=== PATIENT | male | born 1945 | race Caucasian/White ===

== ENCOUNTER 2023-02-08 03:52 | Inpatient (IN) ==
[2023-02-08] MEDS ORDERED: Lidocaine PATCH 5% PATCH TRANSDERM ONE (04:26)
[2023-02-08] MEDS ORDERED: Triamcinolone Acetonide 40 mg VIAL 40 mg/ml 1 ml VIAL IM ONE (05:26)
[2023-02-08] MEDS ORDERED: Bupivacaine 0.25% SDV 30 ML INJ ONE (05:26)
[2023-02-08] MEDS ORDERED: Bupivacaine 0.25% SDV PF 10 ML VIAL INJ ONE (06:00)
[2023-02-08 06:48] LABS: INR 1.04 (0.83-1.13)
[2023-02-08 06:56] LABS: ABS Basophils 0.1 10^3/uL (0.0-0.1); ABS Eosinophils 0.1 10^3/uL (0.0-0.5); ABS Lymphocytes 1.4 10^3/uL (1.0-4.8); ABS Monocytes 0.7 10^3/uL (0.0-1.1); ABS Neutrophils 6.1 10^3/uL (1.5-7.6); Albumin 3.4 g/dL (3.2-5.2); Eosinophil % 1.2 %; Hematocrit 31.6 % (38-53); Hemoglobin 10.8 g/dL (13.2-16.3); Lymphocyte % 16.3 %; Mean Corpuscular Hemoglobin 29.1 pg (27-33); Mean Corpuscular Hgb Conc 34.3 g/dL (31-36); Mean Corpuscular Volume 84.7 fL (80-97); Platelet Count 400 10^3/uL (150-450); Potassium 4.4 mmol/L (3.5-5.0); Red Blood Count 3.73 10^6/uL (4.06-5.63); Red Cell Distribution Width 15.7 % (12-17); Total Bilirubin 0.3 mg/dL (0.2-1.0); White Blood Count 8.4 10^3/uL (3.6-10.2)
[2023-02-08 07:01] LABS: Albumin/Globulin Ratio 1.4 (1-3); Creatinine, Serum 0.56 mg/dL (0.67-1.17); Globulin 2.5 g/dL (2-4); Total Protein 5.9 g/dL (6.4-8.9); eGFR CKD-EPI 100.3 (>60)
[2023-02-08] MEDS ORDERED: Lactated Ringers 1000 ml BAG 1,000 ML IV ONE (07:23)
[2023-02-08] MEDS ORDERED: Iodixanol (CONTRAST) 320 MG/ML 100 ML SDV IV ONE (08:04)
[2023-02-08 08:11] LABS: High Sensitivity Troponin 1 Hr 7 pg/mL (<20)
[2023-02-08] MEDS: Ondansetron 4 mg VIAL 2 MG/ML 2 ml VIAL IV PRN (10:38)
[2023-02-08] MEDS: Enoxaparin 40 MG/0.4 ML SYR SUBCUT SCH (10:39)
[2023-02-08] MEDS ORDERED: Morphine ORAL CONCENTRATE 5 MG/0.25 ML ORAL.SYRIN SL PRN (11:17)
[2023-02-08] MEDS: Polyethylene Glycol 3350 17 GM PACKET PO SCH (12:03)
[2023-02-08 13:09] LABS: Osmolality Serum 273 mOsm/kg (275-295)
[2023-02-08 15:02] LABS: Urine Appearance Cloudy; Urine Bilirubin Negative (Negative); Urine Blood 1+ (Negative); Urine Color Yellow; Urine Glucose Negative (Negative); Urine Ketones Negative (Negative); Urine Nitrite Positive (Negative); Urine Protein Negative (Negative); Urine Urobilinogen Negative (Negative)
[2023-02-08 15:04] LABS: Urine Bacteria 1+ (Absent); Urine Red Blood Cell Trace(0-2/hpf) (Absent); Urine White Blood Cell 2+(11-20/hpf) (Absent)
[2023-02-08 15:31] LABS: Creatinine, Serum 0.53 mg/dL (0.67-1.17); Potassium 4.5 mmol/L (3.5-5.0); eGFR CKD-EPI 101.9 (>60)
[2023-02-08 15:55] LABS: Urine Osmo 404 mOsm/kg (150-1150)
[2023-02-08] MEDS: Morphine ORAL CONCENTRATE 5 MG/0.25 ML ORAL.SYRIN SL PRN (16:51)
[2023-02-08] MEDS: Senna TAB 8.6 mg TAB PO SCH (20:12)
[2023-02-09] MEDS: Morphine ORAL CONCENTRATE 5 MG/0.25 ML ORAL.SYRIN SL PRN ×4 (01:57→22:29)
[2023-02-09 06:36] LABS: Calcium 9.1 mg/dL (8.6-10.3); Creatinine, Serum 0.48 mg/dL (0.67-1.17); Potassium 4.3 mmol/L (3.5-5.0)
[2023-02-09] MEDS ORDERED: Polyethylene Glycol 3350 17 GM PACKET PO SCH (09:00)
[2023-02-09] MEDS ORDERED: Psyllium PAK PO SCH (09:00)
[2023-02-09] MEDS: Polyethylene Glycol 3350 17 GM PACKET PO SCH (11:02)
[2023-02-09] MEDS: Enoxaparin 40 MG/0.4 ML SYR SUBCUT SCH (11:08)
[2023-02-09] MEDS: Ondansetron 4 mg VIAL 2 MG/ML 2 ml VIAL IV PRN (11:14)
[2023-02-09] MEDS: Senna TAB 8.6 mg TAB PO SCH (22:28)
[2023-02-10 05:39] VITALS: BP 134/77
[2023-02-10] MEDS ORDERED: Lidocaine PATCH 4% TOPICAL PRN (13:10)
== END 2023-02-10 13:56 | disposition hospice, inpatient (51) | DRG 861 ==
LOC: ED 03:52 → EDHOLD 03:52 → SUATTDRO 09:49 → MED 11:48
PROVIDERS: ADMIT Internal Medicine; ATTEND Student in an Organized Health Care Education/Training Program